=== PATIENT | female | born 1975 | race Caucasian/White ===

== ENCOUNTER 2017-11-29 09:58 | Emergency (ER) | END 2017-11-29 12:02 | disposition home or self-care (01) ==

== ENCOUNTER 2018-12-06 14:26 | Emergency (ER) | payer MEDICAID ==
[~2018-12-06] VITALS: Ht 162.6 cm; Wt 95.0 kg
[~2018-12-06 14:26] MED LIST: NAPR-985 PO
[2018-12-06 14:33] VITALS: BP 126/75; PULSE 88; RESP 18; Ht 162.6 cm; Wt 95.0 kg
[2018-12-06] MEDS ORDERED: KETOROLAC 30 MG INJ IM STA (15:07)
[2018-12-06] MEDS ORDERED: IBUP-1542 PO (15:47)
[2018-12-06] MEDS ORDERED: ACET-141 PO (15:47)
--- NOTE | 2018-12-06 15:52 | ERD ---
ER Documentation Chief Complaint Chief Complaint c/o headache , also feels her pressure is high , bp 126/75 HPI 43-year-old female with past history of hypertension presents for headache x2 days. She states that she has headache over the posterior head and bilateral lower neck area. The pain is rated 8 out of 10, intermittent, nonradiating. Described as a sharp sensation. She took some Tylenol at home with mild relief. She denies any fevers or chills. Denies chest pain or shortness of breath. Denies nausea or vomiting. Also noted that she has some slight droop and right lower lip numbness yesterday however has resolved currently. No other modifying factors noted, no other treatments tried at home. ROS All systems reviewed and are negative except as per history of present illness. Medications Home Meds Active Scripts Acetaminophen* (Acetaminophen*) 500 MG Extra Strength Tablet, 500 MG PO Q4H PRN for PAIN AND OR ELEVATED TEMP, #30 TAB Prov:DENITA DARDEN 12/06/18 Ibuprofen* (Motrin*) 600 Mg Tab, 600 MG PO Q6H PRN for PAIN AND OR ELEVATED TEMP, #30 TAB Prov:ADELSODENITA 12/06/18 Naproxen* (Naprosyn*) 500 Mg Tablet, 500 MG PO BID PRN for PAIN AND/OR INFLAMMATION, #30 TAB Prov:MARGARETH TRAN PA-C 11/29/17 Allergies Allergies: Coded Allergies: No Known Drug Allergies (Verified Allergy, Unknown, 12/19/10) PMhx/Soc History of Surgery: No Anesthesia Reaction: No Hx Neurological Disorder: No Hx Respiratory Disorders: No Hx Cardiac Disorders: Yes (HTN) Hx Psychiatric Problems: No Hx Miscellaneous Medical Probl: Yes (GALLSTONES) Hx Alcohol Use: No Hx Substance Use: No Hx Tobacco Use: No Smoking Status: Never smoker FmHx Family History: No coronary disease Physical Exam Vitals Vital Signs Date Temp Pulse Resp B/P (MAP) Pulse Ox O2 O2 Flow FiO2 Time Delivery Rate 12/06/18 98.3 88 18 126/75 98 14:33 (92) Physical Exam Const: No acute distress Head: Atraumatic, no temporal area tenderness to palpation, facial muscle strength intact, there is no facial drooping noted Eyes: Normal Conjunctiva, pupils equal, round, reactive to light bilaterally ENT: Normal External Ears, bilateral tympanic membrane intact without erythema or bulging noted, Nose and Mouth examination normal. No tonsillar swelling or exudate noted Neck: Full range of motion. No meningismus, no bruits noted Resp: Clear to auscultation bilaterally Cardio: Regular rate and rhythm, no murmurs, bilateral radial and dorsalis pedis pulses intact Skin: No petechiae or rashes Ext: No cyanosis, or edema, 5 out of 5 muscular bilateral upper and lower extremities Neur: Awake and alert, bilateral upper and lower extremity sensation intact Psych: Normal Mood and Affect Results 24 hrs Laboratory Tests Test 12/06/18 15:21 POC Beta HCG, Qualitative NEGATIVE Current Medications Medications Dose Sig/Christine Start Time Status Last (Trade) Ordered Route PRN Stop Time Admin Dose Reason Admin Ketorolac 30 mg ONCE STAT 12/06/18 DC 12/06/18 Tromethamine IM 15:07 15:26 (Toradol) 12/06/18 15:08 Procedures/MDM Medical Decision Making: Differential diagnosis includes but not limited to primary headache, subarachnoid hemorrhage, meningitis, temporal arteritis, glaucoma, hypertension, cerebral ischemia, carotid or vertebral arterial dissection, brain tumor, CVA Patient appeared well on physical examination, nontoxic appearing. No history of fever. There is low suspicion for meningitis. Given no temporal area tenderness to palpation, low suspicion for temporal arteritis. Patient has no vision changes and pupils are reactive bilaterally, low suspicion for glaucoma. There is also no focal neurologic deficits to suggest a brain tumor. Patient has normal sensation and muscle strength, low suspicion for cerebral ischemia. Patient did not have any slurred speech, there is no muscle weakness or facial drooping to suggest a CVA. Given headache is similar to prior headaches, patient possibly has a primary headache. In the ER patient given Toradol Symptoms improved with treatment. Patient given prescription for supportive medication(s). Patient advised to follow up with PCP in 1-2 days. Patient advised to return to ED for new or worsening symptoms. Patient stable on discharge from the ED. Disclaimer: Inadvertent spelling and grammatical errors are likely due to EHR/dictation software use and do not reflect on the overall quality of patient care. Also, please note that the electronic time recorded on this note does not necessarily reflect the actual time of the patient encounter. Departure Diagnosis: Primary Impression: Headache Headache type: unspecified Headache chronicity pattern: unspecified pattern Intractability: not intractable Qualified Codes: R51 - Headache Condition: Fair Patient Instructions: Self-Care for Headaches Referrals: [facility] YOU HAVE RECEIVED A MEDICAL SCREENING EXAM AND THE RESULTS INDICATE THAT YOU DO NOT HAVE A CONDITION THAT REQUIRES URGENT TREATMENT IN THE EMERGENCY DEPARTMENT. FURTHER EVALUATION AND TREATMENT OF YOUR CONDITION CAN WAIT UNTIL YOU ARE SEEN IN YOUR DOCTORS OFFICE WITHIN THE NEXT 1-2 DAYS. IT IS YOUR RESPONSIBILITY TO MAKE AN APPOINTMENT FOR FOLOW-UP CARE. IF YOU HAVE A PRIMARY DOCTOR --you should call your primary doctor and schedule an appointment IF YOU DO NOT HAVE A PRIMARY DOCTOR YOU CAN CALL OUR PHYSICIAN REFERRAL HOTLINE AT IF YOU CAN NOT AFFORD TO SEE A PHYSICIAN YOU CAN CHOSE FROM THE FOLLOWING [facility] [address] [facility] [address] [facility] [facility] [address] [facility] [address] [facility] [facility] [address] [facility]. [facility]. [address] Additional Instructions: Llame al doctor MAANA y kit julius PREMA PARA DENTRO DE 1-2 HERNANDEZ.Dgale a la secretaria que nosotros le instruimos hacer esta prema.Avise o llame si hall condicin se empeora antes de la prema. Regresa aqui si peor o no mejor. DENITA DARDEN DO Dec 06, 2018 15:52
== END 2018-12-06 15:57 | disposition home or self-care (01) ==
LOC: FTE 14:26
DX: R51 Headache (principal)
CPT/HCPCS: 81025; J1885; 96372

== ENCOUNTER 2019-04-27 02:47 | Emergency (ER) | payer MEDICAID ==
[~2019-04-27] VITALS: Ht 160 cm; Wt 94.9 kg
[~2019-04-27 02:47] MED LIST changes: +ACET-141 PO; +IBUP-1542 PO
[2019-04-27 02:55] VITALS: Ht 160 cm; Wt 94.9 kg
[2019-04-27] MEDS ORDERED: POTASSIUM CHLORIDE (SR) 20 MEQ TAB PO STA (04:50)
[2019-04-27 05:20] VITALS: BP 136/68; PULSE 76; RESP 20
== END 2019-04-27 05:35 | disposition home or self-care (01) ==
LOC: E/R 02:47
DX: I16.0 Hypertensive urgency (principal); I10 Essential (primary) hypertension; R20.2 Paresthesia of skin; E87.6 Hypokalemia
CPT/HCPCS: 36415; 70450; 80048; 81025; 83735; 84484; 85025; 93005; Z7502; Z7610